=== PATIENT | male | born 1940 | race Caucasian/White ===

== ENCOUNTER → 2017-06-03 | Outpatient (CLI) | payer MEDICARE ==
[2017-06-03 10:53] LABS: CREATININE 0.92 MG/DL (0.60-1.30)
== END ==
LOC: CLAB 09:57
DX: C18.9 Malignant neoplasm of colon, unspecified (principal); C25.7 Malignant neoplasm of other parts of pancreas; R19.8 Other specified symptoms and signs involving the digestive system and abdomen; R93.2 Abnormal findings on diagnostic imaging of liver and biliary tract; R63.4 Abnormal weight loss
CPT/HCPCS: 36415; 82565; 86301